=== PATIENT | male | born 1950 | race Caucasian/White ===

== ENCOUNTER 2019-04-24 07:08 | Outpatient (CLI) | payer MEDICARE, OTHER | END 2019-04-24 23:59 | disposition home or self-care (01) | LOC: RAD 07:08 | PROVIDERS: ATTEND Internal Medicine Hematology & Oncology | DX: C76.0 Malignant neoplasm of head, face and neck (principal) | CPT/HCPCS: 36573; C1751 ==

== ENCOUNTER → 2019-10-02 | Outpatient (CLI) | payer MEDICARE, OTHER | END | disposition home or self-care (01) | LOC: RAD 08:03 | PROVIDERS: ATTEND Internal Medicine Hematology & Oncology | DX: C76.0 Malignant neoplasm of head, face and neck (principal) | CPT/HCPCS: 36573; C1751; C1769 ==